=== PATIENT | female | born 1980 | race Hispanic/Latino ===

== ENCOUNTER 2018-09-19 12:31 | Emergency (ER) | payer BC ==
[2018-09-19 12:36] VITALS: RESP 18; TEMP 98.3; O2SAT 99; BMI 20.1
[2018-09-19] MEDS ORDERED: Sodium Chloride 0.9% 1,000 ML IV ONE (13:11)
--- NOTE | 2018-09-19 13:25 | ED PDOC ---
Syncope/Near Syncope/Dizziness Time Seen by Provider: 09/19/18 13:11 Chief Complaint (Nursing): Dizziness/Lightheaded History Per: Patient History/Exam Limitations: no limitations Current Symptoms Are (Timing): Better Activity At Onset Of Symptoms: Standing Associated Symptoms Preceding Syncopal Episode: Lightheadedness, Worse With Standing Seizure Or Post-ictal Symptoms: None Possible Causative Factor(s): Decreased PO Intake Fall Associated With With Symptoms: No Additional Complaint(s): Pt is a 38 yo F with history of Lupus "in remission" and Raynaud's presenting with an episode of dizziness, weakness, and loudness while at work. Pt reports that at 1100 (2 hours [employer]) pt started to experiences dizziness described as feeling like she was going to fall down, associated with feeling like everyone was speaking very loudly, and tingling in bilateral fingers. She was also feeling anxious due to these symptoms. Pt reports that the school nurse checked her blood sugar and blood pressure before and after drinking orange juice, she reports BS was normal, but BP went from low to normal. Pt did not want to come here but the school made her. Pt denies having this before. SHe denies history of anxiety, but reports she has had some stress in her life. SHe also notes that she does not eat breakfast and only had a coffee prior to onset. Pt reports that since being here her symptoms have gotten better and almost resolved. She reports just not feeling completely normal, but unable to describe. SHe denies current dizziness, changes in vision, headache Pt denies chest pain, palpitations, headache, difficulty walking or breathing at any time LMP: started today PMD: Dr. Heather Serrato? - Symptoms Of CVA Recent Aspirin Use: No Current Coumadin Use?: No Recent Head Trauma: No Past Medical History Vital Signs: Last Vital Signs Temp 98.3 F 09/19/18 12:35 Pulse 90 09/19/18 12:35 Resp 18 09/19/18 12:35 BP 119/74 09/19/18 12:35 Pulse Ox 99 09/19/18 12:35 - Medical History Other PMH: Lupus, Raynaud's - Surgical History Surgical History: Appendectomy, (x2) - Family History Family History: States: [place], Diabetes - Social History Current smoker - smoking cessation education provided: Yes (occassionally) Alcohol: Occasional Drugs: Denies - Allergies Allergies/Adverse Reactions: Allergies Allergy/AdvReac Type Severity Reaction Status Date / Time latex Allergy RASH Verified 09/19/18 12:33 Review of Systems Constitutional: Negative for: Fever, Sweats, Weight loss Eyes: Negative for: Pain, Vision Change Cardiovascular: Positive for: Light Headedness. Negative for: Chest Pain, Palpitations Respiratory: Negative for: Cough, Shortness of Breath Gastrointestinal: Negative for: Nausea, Abdominal Pain Neurological: Negative for: Altered Mental Status, Headache Psych: Positive for: Anxiety Physical Exam - Reviewed Vital Signs Reviewed: Yes - Physical Exam Comments: GENERALIZED APPEARANCE:Patient is awake, alert, oriented x3 in no acute d istress. SKIN: Warm, dry; (-) cyanosis. HEAD: (-) scalp swelling or tenderness. EYES: (-) conjunctival pallor, (+)EOMI (+) PERRLA ENMT: Mucous membranes dry. NECK: (-) tenderness, (-) stiffness, (-) lymphadenopathy. CHEST AND RESPIRATORY: (-) rales, (-) rhonchi, (-) wheezes; breath sounds equal bilaterally. HEART AND CARDIOVASCULAR: (-) irregularity; (-) murmur, (-) gallop. ABDOMEN AND GI: Soft; (-) distention, (-) tenderness, (-) rebound, (-) guarding, (-) palpable masses, (-) flank tenderness. EXTREMITIES: (-) deformity; (-) edema. Distal pulses: present. NEURO AND PSYCH: Mental status as above. sql bi developer: (-) nystagmus; Pupils EOMI, (-) facial asymmetry; (-) dysarthria; tongue and uvula midline. Strength symmetric. Cranial nerves 2-12 intact, normal finger to nose, Gait: normal. - Laboratory Results Result Diagrams: 09/19/18 13:32 09/19/18 13:32 - ECG ECG: Positive for: Viewed By Me ECG Rhythm: Positive for: Normal QRS, Sinus Rhythm Interpretation Of ECG: Sinus rhythm 60, no acute ST/T changes O2 Sat by Pulse Oximetry: 99 Medical Decision Making Medical Decision Makin:11 initial evaluation, pt 38 yo F presenting with lightheaded, likely near syncope vs anxiety * cbc, cmp * ekg * orthostatic BP * accu check * U preg and UA * IVF * re eval 15:00 ON re eval, pt is resting comfortably in stretcher, she reports that she is feeling much better and back to her self While here she has had no symptoms Pt is neurologically intact, VSS, EKG with no acute changes, labs wnl, pt is stable for dc Discussed results, diagnosis, treatment, return precautions and f/u with pt who is understanding, in agreement and stable for dc Disposition - Clinical Impression Clinical Impression: Near syncope, Dizziness - Patient ED Disposition Is Patient to be Admitted: No Counseled Patient/Family Regarding: Studies Performed, Diagnosis, Need For Followup, Rx Given - Disposition Referrals: your, primary doctor [Other] Disposition: Routine/Home Disposition Time: 15:07 Condition: IMPROVED Additional Instructions: Return to ED for new or worsening symptoms, fever >100.4, changes in vision, chest pain, difficulty breathing or walking, headache. FOllow up with your primary care doctor in 1-2 days. Rest, drink plenty of fluids. Instructions: Anxiety, Adult (DC), Dizziness, Nonvertigo, (DC), Near Fainting (DC) Forms: [facility] (Turkish), [facility] ED School/Work Excuse Print Language: LAO - POA Present On Arrival: None
[2018-09-19 13:49] LABS: BASO % 0.8 % (0.0-2.0); EOS % 0.7 % (0.0-4.0); HEMOGLOBIN 12.1 g/dL (12.0-16.0); LYMPH # 1.6 K/uL (1.0-4.3); LYMPH % 28.4 % (20.0-40.0); MEAN CELL VOLUME 88.1 fl (81.0-99.0); MEAN CORPUSCULAR HEMOGLOBIN 29.7 pg (27.0-31.0); MEAN CORPUSCULAR HGB CONC 33.7 g/dL (33.0-37.0); MEAN PLATELET VOLUME 8.2 fl (7.2-11.7); MONO # 0.5 K/uL (0.0-0.8); NEUT # 3.5 K/uL (1.8-7.0); NEUT % 61.1 % (50.0-75.0); NRBC % 0.1 % (0.0-0.0); RBC 4.09 Mil/uL (3.80-5.20); RED CELL DISTRIBUTION WIDTH 13.4 % (11.5-14.5); WHITE BLOOD COUNT 5.8 K/uL (4.8-10.8)
[2018-09-19 14:04] LABS: SQUAMOUS EPITHIAL 3 /hpf (0-5); URINE BILIRUBIN NEGATIVE (NEGATIVE); URINE BLOOD NEGATIVE (NEGATIVE); URINE CLARITY SLIGHTY-CLOUDY (Clear); URINE COLOR YELLOW (YELLOW); URINE GLUCOSE (UA) NEG (NEGATIVE); URINE LEUKOCYTE ESTERASE NEG Leu/uL (Negative); URINE PROTEIN NEGATIVE (NEGATIVE); URINE UROBILINOGEN 0.2-1.0 mg/dL (0.2-1.0)
[2018-09-19 14:08] LABS: ALB/GLOB RATIO 1.4 (1.0-2.1); ALBUMIN 4.3 g/dL (3.5-5.0); ALT/SGPT 19 U/L (9-52); AST/SGOT 22 U/L (14-36); BLOOD UREA NITROGEN 10 mg/dl (7-17); CALCIUM 9.1 mg/dL (8.4-10.2); GFR NON-AFRICAN AMERICAN > 60
--- NOTE | 2018-09-19 17:31 | CARD ---
APPROVED REPORT Date of service: 09/19/2018 EKG Measurement Heart [id number] <Conclusion> Sinus bradycardia Otherwise normal ECG
[2018-09-19 19:17] VITALS: BP 111/62; PULSE 74
== END 2018-09-19 15:23 | disposition home or self-care (01) ==
LOC: H.ER 12:31
DX: R55 Syncope and collapse (principal); I73.00 Raynaud's syndrome without gangrene; M32.9 Systemic lupus erythematosus, unspecified
CPT/HCPCS: 80053; 81003; 81025; 82948; 85025; 93005; 96360; 99285; J7040